=== PATIENT | female | born 1985 | race African-American/Black ===

== ENCOUNTER → 2018-05-20 | Outpatient (CLI) | payer MEDICAID ==
[2018-05-20 10:54] VITALS: BP 110/70
[2018-05-20 12:35] LABS: ABSOLUTE BASOPHILS # (AUTO) 0.1 10^3/uL (0.0-0.2); ABSOLUTE EOSINOPHILS # (AUTO) 0.2 10^3/uL (0.0-0.6); ABSOLUTE LYMPHOCYTES (AUTO) 3.6 10^3/uL (0.5-4.7); ABSOLUTE NEUT (AUTO) 8.4 10^3/uL (1.7-8.2); BASOPHILS % (AUTO) 0.7 % (0-2); EOSINOPHILS % (AUTO) 1.5 % (0-6); HEMATOCRIT 37.8 % (36.0-47.0); HEMOGLOBIN 12.7 g/dL (12.0-15.5); MEAN CORPUSCULAR HEMOGLOBIN 30.9 pg (27.0-33.4); MEAN CORPUSCULAR HGB CONC 33.6 g/dL (32.0-36.0); MEAN CORPUSCULAR VOLUME 92 fl (80-97); MONOCYTES % (AUTO) 7.3 % (3-13); PLATELET COUNT 309 10^3/uL (150-450); RED BLOOD COUNT 4.12 10^6/uL (3.72-5.28); SEGMENTED NEUTROPHILS % (AUTO) 63.5 % (42-78); TOTAL CELLS COUNTED % (AUTO) 100 %; WHITE BLOOD COUNT 13.2 10^3/uL (4.0-10.5)
[2018-05-20 12:54] LABS: URINE AMPHETAMINES SCREEN NEGATIVE; URINE BARBITURATES SCREEN NEGATIVE; URINE BENZODIAZEPINES SCREEN NEGATIVE; URINE COCAINE SCREEN NEGATIVE; URINE METHADONE SCREEN NEGATIVE; URINE PHENCYCLIDINE SCREEN NEGATIVE
[2018-05-20 13:11] LABS: APPEARANCE,URINE CLEAR; BILIRUBIN,URINE NEGATIVE (NEGATIVE); COLOR,URINE YELLOW; GLUCOSE, URINE NEGATIVE (NEGATIVE); KETONES,URINE NEGATIVE (NEGATIVE); LEUKOCYTE ESTERASE,URINE TRACE (NEGATIVE); NITRITE,URINE NEGATIVE (NEGATIVE); PROTEIN,URINE NEGATIVE (NEGATIVE); URINE SPECIFIC GRAVITY 1.026; UROBILINOGEN,URINE NEGATIVE mg/dL (<2.0)
[2018-05-20 13:24] LABS: URINE MARIJUANA (THC) SCREEN UNCONFIRMED POSITIVE
--- NOTE | 2018-05-20 23:03 | EKG REPORT ---
SEVERITY:- NORMAL ECG - SINUS RHYTHM : Confirmed by: Pat Hsu 20-May-2018 23:03:13
== END ==
LOC: OD 11:40 → EDSTATUS 05-23 11:30
PROVIDERS: ATTEND Obstetrics & Gynecology
DX: Z01.810 Encounter for preprocedural cardiovascular examination (principal); Z01.812 Encounter for preprocedural laboratory examination; Z01.818 Encounter for other preprocedural examination
CPT/HCPCS: 36415; 80307; 81001; 85025; 93005; 93010

== ENCOUNTER 2018-06-05 13:00 | Inpatient (IN) | payer MEDICAID ==
[2018-06-05] MEDS ORDERED: RINGERS SOLUTION,LACTATED 1,000 ML IV PRN (13:29)
[2018-06-05] MEDS ORDERED: RINGERS SOLUTION,LACTATED 1,000 ML IV ONE (13:29)
[2018-06-05 14:01] LABS: ABSOLUTE EOSINOPHILS # (AUTO) 0.1 10^3/uL (0.0-0.6); ABSOLUTE LYMPHOCYTES (AUTO) 2.4 10^3/uL (0.5-4.7); ABSOLUTE MONOCYTES (AUTO) 0.7 10^3/uL (0.1-1.4); ABSOLUTE NEUT (AUTO) 6.3 10^3/uL (1.7-8.2); BASOPHILS % (AUTO) 0.5 % (0-2); EOSINOPHILS % (AUTO) 1.2 % (0-6); HEMATOCRIT 35.7 % (36.0-47.0); HEMOGLOBIN 12.2 g/dL (12.0-15.5); LYMPHOCYTES % (AUTO) 25.3 % (13-45); MEAN CORPUSCULAR HEMOGLOBIN 31.4 pg (27.0-33.4); MEAN CORPUSCULAR HGB CONC 34.2 g/dL (32.0-36.0); MEAN CORPUSCULAR VOLUME 92 fl (80-97); MONOCYTES % (AUTO) 6.9 % (3-13); PLATELET COUNT 315 10^3/uL (150-450); RED CELL DISTRIBUTION WIDTH 13.9 % (11.5-14.0); SEGMENTED NEUTROPHILS % (AUTO) 66.1 % (42-78); TOTAL CELLS COUNTED % (AUTO) 100 %; WHITE BLOOD COUNT 9.6 10^3/uL (4.0-10.5)
--- NOTE | 2018-06-05 14:39 | Admission Physical ---
Datetime Report Generated by CPN: 06/05/2018 14:39 CURRENT ADMISSION Chief Complaint: Other Indication for Induction: Demise Admit Impression : No Active Labor Admit Plan: Initiate Labor Induction Protocol ALLERGIES Medication Allergies: No Medication Allergies: No Known Allergies (05/20/2018) Latex: No Latex Allergies OBSTETRICAL HISTORY EDC: 10/21/2018 00:00 : 2 Para: 0 Gestational Diabetes: No Rh Sensitization: No Incompetent Cervix: No ARIADNE: No Infertility: No ART Treatment: No Uterine Anomaly: No IUGR: No Hx Previous C/S: No Macrosomia: No Hx Loss/Stillborn: No PIH: No Hx : No Placenta Previa/Abruption: No Depression/PP Depression: No PTL/PROM: No Post Hemorrhage: No Current Procedures: Ultrasound Obstetrical History Comments: G1 - SAB G2 - IUFD @ 20 WEEKS, +AFP, ADNEXIAL MASS, CHTN SEE RECORDS Alcohol: No Marijuana : No Cocaine: No Other Illicit Drugs: No Cigarettes: Never Smoker. 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 Heart Disease: No Hosp/Surgery: No Autoimmune Disorder: No Anesthetic Complications: No Kidney Disease: No Abnormal Pap Smear: No Neuro/Epilepsy: No Psychiatric Disorders: No Other Medical Diseases: No Hepatitis/Liver Disease: No Significant Family History: No Varicosities/Phlebitis: No Trauma/Violence : No Thyroid Dysfunction: No Medical History Comments: PCOS, ADNEXIAL MASS INFECTIOUS HISTORY Gonorrhea: No Genital Herpes: No Chlamydia: No Tuberculosis: No Syphilis: No Hepatitis: No HIV/AIDS Exposure: No Rash or Viral Illness: No HPV: No PHYSICAL EXAM General: Normal HEENT: Deferred Neurologic: Normal Thyroid: Deferred Heart: Normal Lungs: Normal Breast: Deferred Back: Deferred Abdomen: Normal Genitourinary Exam: Normal Extremities: Normal DTRs: Deferred Pelvic Type: Adequate Physical Exam Comments: no heart tones at [facility] today on sonogram Vital Signs: Reviewed VAGINAL EXAM Dilatation: 0 Effacement: 0 Station: -1 FETUS A Admit Comment: CHTN PCOS Pt has Lt adnexal mass, surgery scheduled next week for removal MFM was consulted for +AFP G1: SAB early G2: current PLANS FOR LABOR AND DELIVERY Labor and Delivery: Plan Pain Management: Medications; Epidural INFORMED CONSENT Assignment: Toney Bess MD Signature: with User ID: Mary : with User ID: Mary
[2018-06-05 14:53] LABS: URINE AMPHETAMINES SCREEN NEGATIVE; URINE BARBITURATES SCREEN NEGATIVE; URINE BENZODIAZEPINES SCREEN NEGATIVE; URINE COCAINE SCREEN NEGATIVE; URINE METHADONE SCREEN NEGATIVE; URINE PHENCYCLIDINE SCREEN NEGATIVE
[2018-06-05 15:02] LABS: URINE MARIJUANA (THC) SCREEN UNCONFIRMED POSITIVE
[2018-06-05] MEDS ORDERED: MISOPROSTOL 0.1 MG TABLET ONE ×2 (15:02→21:10)
[2018-06-05] MEDS ORDERED: OXYCODONE-ACETAMINOPHEN 5-325 MG TABLET PO PRN (15:14)
[2018-06-05] MEDS ORDERED: ACETAMINOPHEN 325 MG TABLET PO PRN (15:14)
[2018-06-05] MEDS ORDERED: LOPERAMIDE HCL 2 MG CAPSULE PO PRN (15:14)
[2018-06-05] MEDS: MISOPROSTOL 0.1 MG TABLET PV SCH ×2 (19:03→21:24)
[2018-06-05] MEDS ORDERED: OXYCODONE-ACETAMINOPHEN 5-325 MG TABLET ONE (19:30)
[2018-06-05] MEDS ORDERED: NALBUPHINE HCL INJ 10 MG/1 ML AMPULE INJ ONE (21:08)
[2018-06-05] MEDS ORDERED: NALBUPHINE HCL INJ 10 MG/1 ML AMPULE ONE (21:10)
[2018-06-05] MEDS ORDERED: PROMETHAZINE HCL 25 MG SUPP.RECT PR PRN (22:47)
[2018-06-05] MEDS ORDERED: BENZOCAINE/MENTHOL AEROSOL SPRAY 56 ML TOP PRN (22:47)
[2018-06-05] MEDS ORDERED: PROMETHAZINE HCL INJ 25 MG/1 ML VIAL IV PRN (22:47)
[2018-06-05] MEDS ORDERED: ACETAMINOPHEN 650 MG SUPP.RECT PR PRN (22:47)
[2018-06-05] MEDS ORDERED: MAGNESIUM HYDROXIDE SUSP 30 ML UDCUP PO PRN (22:47)
[2018-06-05] MEDS ORDERED: ZOLPIDEM TARTRATE 5 MG TABLET PO PRN (22:47)
[2018-06-05] MEDS ORDERED: DIBUCAINE 1% OINTMENT 28 GM TP PRN (22:47)
[2018-06-05] MEDS ORDERED: NA PHOS,M-B/NA PHOS,DI-BA (ADULT) 133 ML ENEMA PR PRN (22:47)
[2018-06-05] MEDS ORDERED: OXYTOCIN/NORMAL SALINE 20 UNIT/1,000 ML RTUINJ IV PRN (22:47)
[2018-06-05] MEDS ORDERED: MEASLES,MUMPS&RUBELLA VACC/PF 0.5 ML VIAL SUBCUT PRN (22:47)
[2018-06-05] MEDS ORDERED: DIPHENHYDRAMINE HCL 25 MG CAPSULE PO PRN (22:47)
[2018-06-05] MEDS ORDERED: ACETAMINOPHEN WITH CODEINE #3 TABLET PO PRN (22:47)
[2018-06-05] MEDS ORDERED: DIPH/PERTUSS(ACELL)/TETANUS VAC/PF 0.5 ML SYR (>=10YO) IM PRN (22:47)
[2018-06-05] MEDS ORDERED: PROMETHAZINE HCL 25 MG TABLET PO PRN (22:47)
[2018-06-05] MEDS ORDERED: GLYCERIN/WITCH HAZEL LEAF 1 EACH MED..PAD TP PRN (22:47)
[2018-06-05] MEDS ORDERED: PSEUDOEPHEDRINE HCL 30 MG TABLET PO PRN (22:47)
[2018-06-06] MEDS ORDERED: IBUPROFEN 800 MG TABLET PO SCH (06:00)
[2018-06-06 06:29] LABS: HEMATOCRIT 34.1 % (36.0-47.0); HEMOGLOBIN 11.8 g/dL (12.0-15.5); MEAN CORPUSCULAR HEMOGLOBIN 31.7 pg (27.0-33.4); MEAN CORPUSCULAR HGB CONC 34.6 g/dL (32.0-36.0); MEAN CORPUSCULAR VOLUME 92 fl (80-97); PLATELET COUNT 246 10^3/uL (150-450); RED BLOOD COUNT 3.73 10^6/uL (3.72-5.28); RED CELL DISTRIBUTION WIDTH 13.7 % (11.5-14.0); WHITE BLOOD COUNT 11.6 10^3/uL (4.0-10.5)
[2018-06-06] MEDS ORDERED: SENNOSIDES/DOCUSATE 8.6-50 MG 1 EACH TABLET PO SCH (10:00)
[2018-06-06] MEDS ORDERED: PRENATAL VITAMIN W DHA CAPSULE PO SCH (10:00)
[2018-06-06] MEDS ORDERED: FERROUS SULFATE 325 MG TABLET PO SCH (10:00)
[2018-06-06] MEDS ORDERED: FAMOTIDINE 20 MG TABLET PO SCH (10:00)
[2018-06-06] MEDS ORDERED: DOCUSATE SODIUM 100 MG CAPSULE PO SCH (10:00)
--- NOTE | 2018-06-06 11:56 | RADIOLOGY REPORT (SQ) ---
EXAM DESCRIPTION: CT ABD/PELVIS WITH IV ORAL COMPLETED DATE/TIME: 06/06/2018 11:43 am REASON FOR STUDY: ovarian mass COMPARISON: Ultrasound from [facility] dated 02/20/2018 and 02/24/2016. TECHNIQUE: CT scan of the abdomen and pelvis performed using helical scanning technique with dynamic intravenous contrast injection. No oral contrast. Images reviewed with lung, soft tissue, and bone windows. Reconstructed coronal and sagittal MPR images reviewed. Delayed images for evaluation of the urinary system also acquired. All images stored on PACS. All CT scanners at this facility use dose modulation, iterative reconstruction, and/or weight based d osing when appropriate to reduce radiation dose to as low as reasonably achievable (ALARA). [facility]: Dose Right [facility]: CareDose [facility]: Dose Right [facility]: Teradose 4D [facility]: [employer] CONTRAST TYPE AND DOSE: contrast/concentration: Isovue 350.00 mg/ml; Total Contrast Delivered: 100.0 ml; Total Saline Delivered: 72.0 ml RENAL FUNCTION: None required. The patient is less than 50 years old. RADIATION DOSE: CT Rad equipment meets quality standard of care and radiation dose reduction techniq ues were employed. CTDIvol: 22.6 - 23.2 mGy. DLP: 2339 mGy-cm.. LIMITATIONS: None. FINDINGS: LOWER CHEST: No significant findings. No nodules or infiltrates. LIVER: Normal size. No masses. No dilated ducts. SPLEEN: Normal size. No focal lesions. PANCREAS: No masses. No significant calcifications. No adjacent inflammation or peripancreatic fluid collections. Pancreatic duct not dilated. GALLBLADDER: No identified stones by CT criteria. No inflammatory changes to suggest cholecystitis. ADRENAL GLANDS: No significant masses or asymmetry. RIGHT KIDNEY AND URETER: No solid masses. 1-2 mm lower pole calyceal calculus. No hydronephrosis or hydroureter. LEFT KIDNEY AND URETER: No solid masses. Tiny upper pole calyceal calculus. Duplicated collecting system. No hydronephrosis or hydroureter. AORTA AND VESSELS: No aneurysm. No dissection. Renal arteries, SMA, celiac without stenosis. RETROPERITONEUM: No retroperitoneal adenopathy, hemorrhage or masses. BOWEL AND PERITONEAL CAVITY: No masses or inflammatory changes. No free fluid or peritoneal masses. APPENDIX: Normal. PELVIS: 4.5 x 5.5 cm left ovarian mass. Heterogenous density but predominantly fatty density with [place] units approximately -90. No free fluid. Normal bladder. ABDOMINAL WALL: No masses. No hernias. BONES: No significant or acute findings. OTHER: No other significant finding. IMPRESSION: 1. LEFT OVARIAN MASS, PREDOMINATELY FATTY DENSITY, CONSISTENT WITH A DERMOID. 2. SMALL NONOBSTRUCTING CALYCEAL CALCULI IN BOTH KIDNEYS. 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 3. NO OTHER SIGNIFICANT OR ACUTE FINDING IN THE ABDOMEN OR PELVIS ON CT SCAN WITH IV CONTRAST. TECHNICAL DOCUMENTATION: JOB ID: [id number] Quality ID # [id number]: Final reports with documentation of one or more dose reduction techniques (e.g., Au tomated exposure control, adjustment of the mA and/or kV according to patient size, use of iterative reconstruction technique) 2010 [employer]- All Rights Reserved Reading location - IP/workstation name: [facility]
--- NOTE | 2018-06-06 16:42 | L&D Progress Notes ---
PROGRESS NOTES Datetime Report Generated by CPN: 06/06/2018 16:41 PROGRESS NOTE Comment: up to evaluate the patient and evaluate her for discharge. However, I was informed that she was already gone. I called the patient on her home number. No answer. RN at our office was able to reach her and patient called me so that I could give her instructions for next week with Dr. Zavala for her surgery. She reports that the staff discharged her. She was not discharged by myself or ARSLAN garcia as neither of us had been in to discuss her care with her. VAGINAL EXAM Dilatation: 0 Effacement: 0 Station: -1 SIGNATURE SIGNATURE: [id number] SIGNATURE: [id number] Signature: with User ID: [email or web address]
--- NOTE | 2018-06-06 19:43 | PDOC DISCHARGE SUMMARY ---
Final Diagnosis Discharge Date: 06/06/18 - Final Diagnosis (1) Intrauterine at 20 weeks or more of gestation Is this a current diagnosis for this admission?: Yes (2) Ovarian mass, left Is this a current diagnosis for this admission?: Yes Discharge Data - Discharge Medication Home Medications: Aspirin [Aspirin 81 mg Chewable Tablet] 1 tab PO BID 05/20/18 Vit,Calc76/Iron/Folic [Prenatabs Rx Tablet] 1 tab PO DAILY 05/20/18 Gestational Age: 20.2 Reason(s) for Admission: Induction of Labor, Demise Admission Note: 20+2ega seen in office on 06/05 for routine appt and to follow up with her regarding her appt with [facility] regarding her left ovarian mass. She was unfortunately noted to have a demise Procedures: Management of Medical Complications Intrapartum Procedure(s): Spontaneous Vaginal Delivery Intrapartum Procedure Note: Admitted at 20+ega and cytotec given for Induction due to demise. Labs ordered as well due to ovarian mass with concern for malignant pathology. pt with known plan to have surgical evaluation at [facility] AT [facility] by Dr. Houston on Sunday next week. See delivery note. Complication(s) Note: Patient monitored on labor and delivery for complications and to obtain CT scan of chest/abd/pelvis that Dr. Zavala wanted to help guide her care. She was doing well. I was going in to see the patient and the patient had apparently already been discharge by nursing staff - despite my instructions previously that I was not yet ready to discharge her. Actual discharge order placed not because provider discharge her but to complete documentation after staff discharge the patient. Therefore when staff discharged her she had not been seen by a provider and had not been given any discharge medications. With the assistance of my office staff was able to locate the patient who returned my call on labor and delivery so that I could pass on Dr. Zavala instructions and check on her. she stated that she was havng minimal bleeding and her pain was under control. I offered her pain medication and asked if I could be of any assistance to her. She stated she would call if she needed anything and will come in to our office on sunday to orange picker stuff for Dr. Zavala. - Diagnosis Test Laboratory: Temp Pulse Resp BP Pulse Ox 98.5 F 64 18 100 06/06/18 12:47 06/06/18 12:47 06/06/18 12:47 06/06/18 12:47 06/05/18 06/05/18 06/06/18 13:24 14:00 06:05 RBC 3.90 3.73 Hgb 12.2 11.8 L Hct 35.7 L 34.1 L Urine Opiates Screen NEGATIVE - Discharge information/Instructions Discharge Activity: Activity As Tolerated, Balance Activity w/Rest, Pelvic Rest Discharge Diet: As Tolerated Disposition: HOME, SELF-CARE Follow up with: [facility] in: 1
--- NOTE | 2018-06-17 18:12 | Delivery Summary ---
Del Sum A-C Datetime Report Generated by CPN: 06/17/2018 18:11 DELIVERY PERSONNEL DELIVERY PERSONNEL: [id number] Delivery Doctor:: Toney Bess, MD Labor and Delivery Nurse:: Elaine Hare, supervisor boarding Nurse:: Karime Prieto RN Additional Personnel: : Ivanna Valdovinos, RN MATERNAL INFORMATION Delivery Anesthesia: None Maternal Complications: None LABOR SUMMARY EDC: 10/21/2018 00:00 No. Babies in Womb: 1 Attempted: No Labor Anesthesia: IV Sedation LABOR INFORMATION Reason for Induction: Demise Onset of Labor: 06/05/2018 19:30 Complete Dilatation: 06/05/2018 21:31 Cervical Ripening Agents: Cytotec @ Oxytocin: N/A Group B Beta Strep: unknown Steroids Given: None Reason Steroids Not Administered: Not Applicable STAGES OF LABOR Stage 1 hr: 2 Stage 1 min: 1 Stage 2 hr: 0 Stage 2 min: 54 Stage 3 hr: 0 Stage 3 min: 15 Total Time in Labor hr: 3 Total Time in Labor min: 10 VAGINAL DELIVERY Episiotomy: None Laceration #1: None Laceration Extension #1: N/A Laceration Repair: Not Applicable Sponge Count Correct: N/A Sharps Count Correct: N/A CSECTION DELIVERY Primary Indication: N/A Secondary Indication: N/A CSection Incidence: N/A Labor: N/A Elective: N/A CSection Incision: N/A BABY A INFORMATION Infant Delivery Date/Time: 06/05/2018 22:25 Method of Delivery: Vaginal Method of Delivery: Vaginal Born in Route : No : N/A Forceps: N/A Vacuum Extraction: N/A Shoulder Dystocia : No PRESENTATION/POSITION BABY A Presentation: Breech Breech Presentation: Double Footling PLACENTA INFORMATION BABY A Placenta Delivery Time : 06/05/2018 22:40 Placenta Method of Delivery: Spontaneous Placenta Method of Delivery: Spontaneous Placenta Method of Delivery: Manual Removal Placenta Status: Delivered SCORES BABY A Heart Rate 1 min: Absent Resp Effort 1 min: Absent Reflex Irritability 1 min: No Response Muscle Tone 1 min: Flaccid Color 1 min: Blue/Pale SCORE 1 MIN: 0 Heart Rate 5 min: Absent Resp Effort 5 min: Absent Reflex Irritability 5 min: No Response Muscle Tone 5 min: Flaccid Color 5 min: Blue/Pale SCORE 5 MIN: 0 INFANT INFORMATION BABY A Gestational Age at Delivery: 20.2 Gestational Status: - <34 Weeks Outcome : Stillborn Infant Sex: Female Sex: Female WEIGHT/LENGTH BABY A Birthweight (gm): 133 Weight (lb): 0 Weight (oz): 5 Infant Length (in): 7.50 Infant Length (cm): 19.05 CORD INFORMATION BABY A No. Cord Vessels: 3 Nuchal Cord : N/A Cord Blood Taken: No-Annotate Suction: None ASSESSMENT BABY A Infant Complications: Other Complications- Other: IUFD Resident Caregiver/ALS Called : No Infant Care By: M. Conner RN Transferred To: Remains with Mother BABY B INFORMATION : N/A SIGNATURES Signature: with User ID: [email or web address] : I was personally available for consultation and serving as supervising physician for the MLP.
== END 2018-06-06 13:30 | disposition home or self-care (01) | DRG 775 ==
LOC: LR 13:00
PROVIDERS: ADMIT Obstetrics & Gynecology Gynecology; ATTEND Obstetrics & Gynecology Gynecology
PROC: 10E0XZZ Delivery of Products of Conception, External Approach (ICD-10-PCS; principal; 2018-06-05)
PROC: 3E033VJ Introduction of Other Hormone into Peripheral Vein, Percutaneous Approach (ICD-10-PCS; 2018-06-05)
PROC: 4A1HXCZ Monitoring of Products of Conception, Cardiac Rate, External Approach (ICD-10-PCS; 2018-06-05)
DX: O36.4XX0 Maternal care for intrauterine death, not applicable or unspecified (principal); D27.1 Benign neoplasm of left ovary; O32.8XX0 Maternal care for other malpresentation of fetus, not applicable or unspecified; Z3A.20 20 weeks gestation of pregnancy; Z37.1 Single stillbirth
CPT/HCPCS: 36415; 74177; 80307; 83615; 84702; 85025; 85027; 86592; 86850; 86900; 86901; 88305; J2300; J3490

== ENCOUNTER 2019-09-22 19:00 | Observation (INO) | payer MEDICAID ==
[2019-09-22 19:33] LABS: APPEARANCE,URINE SLIGHTLY-CLOUDY; BILIRUBIN,URINE NEGATIVE (NEGATIVE); COLOR,URINE YELLOW; GLUCOSE, URINE NEGATIVE (NEGATIVE); KETONES,URINE 80 mg/dL (NEGATIVE); LEUKOCYTE ESTERASE,URINE LARGE (NEGATIVE); NITRITE,URINE NEGATIVE (NEGATIVE); PROTEIN,URINE NEGATIVE (NEGATIVE); URINE SPECIFIC GRAVITY 1.013; UROBILINOGEN,URINE NEGATIVE mg/dL (<2.0)
[2019-09-22 19:50] LABS: URINE AMPHETAMINES SCREEN NEGATIVE; URINE BARBITURATES SCREEN NEGATIVE; URINE BENZODIAZEPINES SCREEN NEGATIVE; URINE COCAINE SCREEN NEGATIVE; URINE METHADONE SCREEN NEGATIVE; URINE PHENCYCLIDINE SCREEN NEGATIVE
[2019-09-22 19:56] LABS: URINE MARIJUANA (THC) SCREEN UNCONFIRMED POSITIVE
[2019-09-22] MEDS ORDERED: BETAMET ACET/BETAMET NA INJ 6 MG/1 ML IM PRN (20:33)
[2019-09-22] MEDS ORDERED: RINGERS SOLUTION,LACTATED 1,000 ML IV PRN (20:34)
[2019-09-22] MEDS ORDERED: BETAMET ACET/BETAMET NA INJ 6 MG/1 ML ONE ×2 (20:39→20:46)
[2019-09-22] MEDS ORDERED: TERBUTALINE SULFATE INJ/PF 1 MG/1 ML SDV ONE (21:14)
[2019-09-22] MEDS ORDERED: TERBUTALINE SULFATE INJ/PF 1 MG/1 ML SDV SUBCUT ONE (21:14)
--- NOTE | 2019-09-22 21:27 | Admission Physical ---
Datetime Report Generated by CPN: 09/22/2019 21:26 CURRENT ADMISSION Chief Complaint: Uterine Contractions Indication for Induction: Not Applicable Admit Impression : , Intrauterine ; Observation/Evaluation Admit Plan: Observation/Evaluation Admit Plan- Other: palpable contractions, concerns for Delivery due to cervical dilatation. ALLERGIES Medication Allergies: No Medication Allergies: No Known Allergies (05/20/2018) Latex: No Latex Allergies OBSTETRICAL HISTORY EDC: 10/31/2019 00:00 : 3 Para: 0 Term: 0 : 0 SAB: 0 IAB: 0 Ectopic: 0 Livin Cesareans: 0 VBACs: 0 Multiple Births: 0 Gestational Diabetes: No Rh Sensitization: No Incompetent Cervix: No ARIADNE: No Infertility: No ART Treatment: No Uterine Anomaly: No IUGR: No Hx Previous C/S: No Macrosomia: No Hx Loss/Stillborn: No PIH: No Hx : No Placenta Previa/Abruption: No Depression/PP Depression: No PTL/PROM: No Post Hemorrhage: No Obstetrical History Comments: 2015 SAB with D_C 2017 IUFD at 16 weeks G3- current SEE RECORDS Alcohol: No Marijuana : Yes Cocaine: No Other Illicit Drugs: No Cigarettes: Never Smoker. 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 Heart Disease: No Hosp/Surgery: No Autoimmune Disorder: No Anesthetic Complications: No Kidney Disease: No Abnormal Pap Smear: No Neuro/Epilepsy: No Psychiatric Disorders: No Other Medical Diseases: No Hepatitis/Liver Disease: No Significant Family History: No Varicosities/Phlebitis: No Trauma/Violence : No Thyroid Dysfunction: No Medical History Comments: ovarian mass removed 2018- benign dermoid, CHTN INFECTIOUS HISTORY Gonorrhea: No Genital Herpes: No Chlamydia: No Tuberculosis: No Syphilis: No Hepatitis: No HIV/AIDS Exposure: No Rash or Viral Illness: No HPV: No PHYSICAL EXAM General: Normal HEENT: Normal Neurologic: Normal Thyroid: Normal Heart: Normal Lungs: Normal Breast: Normal Back: Normal Abdomen: Normal Genitourinary Exam: Normal Extremities: Normal DTRs: Normal Pelvic Type: Adequate Vital Signs: Reviewed VAGINAL EXAM Dilatation: 2 Effacement: 100 Station: -1 MEMBRANES Pooling: Negative Membranes: Intact FETUS A EGA: 34.3 Monitoring: External US FHR- Baseline: 140 Variability: Moderate 6-25bpm Accelerations: 15X15 Decelerations: None FHR Category: Category I Estimated Weight (gm): 2500 Presentation: Vertex Admit Comment: will monitor for advancing labor. Terbutiline to attempt tocolysis. Patient given a single dose of celestone for FLM and NEC prevention. d/w pt and family member regarding need for observation and possibility of early delivery with need for infant support in NICU if delivery does occur. PLANS FOR LABOR AND DELIVERY Benefit of Breast Feed Discussed: Yes INFORMED CONSENT Signature: with User ID: [email or web address]
[2019-09-22] MEDS ORDERED: RINGERS SOLUTION,LACTATED 1,000 ML IV ONE (21:38)
[2019-09-22 22:22] LABS: HEMATOCRIT 36.8 % (36.0-47.0); HEMOGLOBIN 12.6 g/dL (12.0-15.5); MEAN CORPUSCULAR HEMOGLOBIN 30.4 pg (27.0-33.4); MEAN CORPUSCULAR HGB CONC 34.2 g/dL (32.0-36.0); MEAN CORPUSCULAR VOLUME 89 fl (80-97); PLATELET COUNT 297 10^3/uL (150-450); RED BLOOD COUNT 4.14 10^6/uL (3.72-5.28); RED CELL DISTRIBUTION WIDTH 14.2 % (11.5-14.0); WHITE BLOOD COUNT 16.6 10^3/uL (4.0-10.5)
[2019-09-23] MEDS ORDERED: BETAMET ACET/BETAMET NA INJ 6 MG/1 ML ONE ×2 (00:14→20:50)
[2019-09-23] MEDS ORDERED: NIFEDIPINE 10 MG CAPSULE PO PRN (08:20)
[2019-09-23] MEDS ORDERED: NIFEDIPINE 10 MG CAPSULE ONE (08:27)
[2019-09-23] MEDS ORDERED: BETAMET ACET/BETAMET NA INJ 6 MG/1 ML IM PRN (21:00)
--- NOTE | 2019-09-23 21:26 | Non Stress Test Report ---
Non Stress Test Datetime Report Generated by CPN: 09/23/2019 21:25 DEMOGRAPHIC EGA NST: 34.4 INDICATION Indication for Study (NST) Other: Gestional age greater than 32 weeks MONITORING Monitor Explained: Monitor Explained; Test Explained; Patient Verbalized Understanding Time on Monitor: 09/23/2019 19:55 Time off Monitor: 09/23/2019 20:38 NST Duration: 43 NST INTERVENTIONS NST Interventions: PO Hydration; Meal Given; Reposition Patient Physician Notified NST: Dr. Coronel BABY A: [id number] BABY A Movement : Present Contraction Frequency : irritability FHR Baseline : 125 Accelerations : 15X15 Decelerations : None Variability : Moderate 6-25bpm NST Review: Meets Criteria for Reactive NST NST Review and Verified By : Diego Keeneavancchula RN NST Results: Reactive NST REPORT Report Trigger: Send Report
== END 2019-09-23 21:00 | disposition home or self-care (01) ==
LOC: LC 19:00 → LR 21:20 → UNDODISOB 09-23 00:33
PROVIDERS: ADMIT Obstetrics & Gynecology; ATTEND Obstetrics & Gynecology
DX: O47.03 False labor before 37 completed weeks of gestation, third trimester (principal); Z3A.34 34 weeks gestation of pregnancy; Z87.59 Personal history of other complications of pregnancy, childbirth and the puerperium
CPT/HCPCS: 96372 ×2; 86900; 86901; 36415; 86850; 85027; 87077; 86592; 81001; 87081; 80307; 59025; G0378 ×2; G0480 ×2; J3490; J0702 ×2; J3105; 80349

== ENCOUNTER 2019-09-25 08:08 | Inpatient (IN) | payer MEDICAID ==
[2019-09-25] MEDS ORDERED: PENICILLIN G POTASSIUM 5,000,000 UNIT in DEXTROSE 5%-WATER 100 ML IV ONE (10:36)
[2019-09-25 10:38] LABS: URINE AMPHETAMINES SCREEN NEGATIVE; URINE BARBITURATES SCREEN NEGATIVE; URINE BENZODIAZEPINES SCREEN NEGATIVE; URINE COCAINE SCREEN NEGATIVE; URINE METHADONE SCREEN NEGATIVE; URINE PHENCYCLIDINE SCREEN NEGATIVE
[2019-09-25] MEDS ORDERED: MORPHINE SULFATE 10 MG/ML INJ ONE (10:39)
[2019-09-25] MEDS ORDERED: MORPHINE SULFATE 10 MG/ML INJ IV ONE (10:39)
[2019-09-25] MEDS ORDERED: PENICILLIN G-K 5 MILLION UNIT VIAL ONE ×2 (10:40→15:09)
[2019-09-25 10:43] LABS: URINE MARIJUANA (THC) SCREEN UNCONFIRMED POSITIVE
[2019-09-25 10:45] LABS: ABSOLUTE BASOPHILS # (AUTO) 0.1 10^3/uL (0.0-0.2); ABSOLUTE LYMPHOCYTES (AUTO) 3.4 10^3/uL (0.5-4.7); ABSOLUTE MONOCYTES (AUTO) 0.8 10^3/uL (0.1-1.4); ABSOLUTE NEUT (AUTO) 9.8 10^3/uL (1.7-8.2); BASOPHILS % (AUTO) 0.4 % (0-2); EOSINOPHILS % (AUTO) 0.3 % (0-6); HEMATOCRIT 35.4 % (36.0-47.0); HEMOGLOBIN 12.1 g/dL (12.0-15.5); LYMPHOCYTES % (AUTO) 24.1 % (13-45); MEAN CORPUSCULAR HEMOGLOBIN 30.6 pg (27.0-33.4); MEAN CORPUSCULAR HGB CONC 34.3 g/dL (32.0-36.0); MEAN CORPUSCULAR VOLUME 89 fl (80-97); MONOCYTES % (AUTO) 5.8 % (3-13); PLATELET COUNT 302 10^3/uL (150-450); RED BLOOD COUNT 3.97 10^6/uL (3.72-5.28); RED CELL DISTRIBUTION WIDTH 14.3 % (11.5-14.0); SEGMENTED NEUTROPHILS % (AUTO) 69.4 % (42-78); TOTAL CELLS COUNTED % (AUTO) 100 %; WHITE BLOOD COUNT 14.1 10^3/uL (4.0-10.5)
[2019-09-25 10:53] LABS: UR PRO/CREAT RATIO RESULT 0.2 mg/mg (0.0-0.2); URINE CREATININE 73.1 mg/dL (16-327); URINE PROTEIN 17.2 mg/dL (<12)
[2019-09-25 11:11] LABS: ALBUMIN 3.3 g/dL (3.5-5.0); ALKALINE PHOSPHATASE 112 U/L (38-126); ANION GAP 11 (5-19); ASPARTATE AMINO TRANSFERASE 53 U/L (14-36); BILIRUBIN,DIRECT 0.3 mg/dL (0.0-0.4); BILIRUBIN,TOTAL 0.3 mg/dL (0.2-1.3); BLOOD UREA NITROGEN 5 mg/dL (7-20); CARBON DIOXIDE 21 mmol/L (22-30); CHLORIDE 106 mmol/L (98-107); GLUCOSE 102 mg/dL (75-110); POTASSIUM 3.4 mmol/L (3.6-5.0); TOTAL PROTEIN 6.6 g/dL (6.3-8.2); URIC ACID 4.8 mg/dL (2.5-6.2)
[2019-09-25] MEDS ORDERED: PENICILLIN G POTASSIUM 2,500,000 UNIT in DEXTROSE 5%-WATER 50 ML IV SCH (14:37)
--- NOTE | 2019-09-25 14:54 | Admission Physical ---
Datetime Report Generated by CPN: 09/25/2019 14:53 CURRENT ADMISSION Chief Complaint: Uterine Contractions Indication for Induction: Not Applicable Admit Impression : , Intrauterine Admit Plan: Initiate Labor Protocol; Observation/Evaluation Admit Plan- Other: palpable contractions, concerns for Delivery due to cervical dilatation. ALLERGIES Medication Allergies: No Medication Allergies: No Known Allergies (09/25/2019) Latex: No Latex Allergies OBSTETRICAL HISTORY EDC: 10/31/2019 00:00 : 3 Para: 0 Term: 0 : 0 SAB: 0 IAB: 0 Ectopic: 0 Livin Cesareans: 0 VBACs: 0 Multiple Births: 0 Gestational Diabetes: No Rh Sensitization: No Incompetent Cervix: No ARIADNE: No Infertility: No ART Treatment: No Uterine Anomaly: No IUGR: No Hx Previous C/S: No Macrosomia: No Hx Loss/Stillborn: No PIH: No Hx : No Placenta Previa/Abruption: No Depression/PP Depression: No PTL/PROM: No Post Hemorrhage: No Current Procedures: Ultrasound; NST Obstetrical History Comments: - 2015 SAB with D_C G2- 2017 IUFD at 16 weeks G3- current SEE RECORDS Alcohol: No Marijuana : Yes Cocaine: No Other Illicit Drugs: No Cigarettes: Never Smoker. [id number] MEDICAL HISTORY Diabetes: No Blood Transfusion: No Pulmonary Disease (Asthma, TB): No Breast Disease: No Hypertension: Yes Loss Claim Clerk Surgery: Yes Heart Disease: No Hosp/Surgery: No Autoimmune Disorder: No Anesthetic Complications: No Kidney Disease: No Abnormal Pap Smear: No Neuro/Epilepsy: No Psychiatric Disorders: No Other Medical Diseases: No Hepatitis/Liver Disease: No Significant Family History: No Varicosities/Phlebitis: No Trauma/Violence : No Thyroid Dysfunction: No Medical History Comments: ovarian mass removed 2018- benign dermoid, CHTN INFECTIOUS HISTORY Gonorrhea: No Genital Herpes: No Chlamydia: No Tuberculosis: No Syphilis: No Hepatitis: No HIV/AIDS Exposure: No Rash or Viral Illness: No HPV: No PHYSICAL EXAM General: Normal HEENT: Normal Neurologic: Normal Thyroid: Normal Heart: Normal Lungs: Normal Breast: Deferred Back: Normal Abdomen: Normal Genitourinary Exam: Normal Extremities: Normal DTRs: Abnormal Pelvic Type: Adequate Vital Signs: Reviewed Details Vital Signs: mild range elevations in BP VAGINAL EXAM Dilatation: 3 Effacement: 100 Station: -1 Contraction Comments: Q 5-6 mins MEMBRANES Pooling: Negative Membranes: Bulging FETUS A EGA: 34.6 Monitoring: External US FHR- Baseline: 120 Variability: Moderate 6-25bpm Accelerations: 15X15 Decelerations: None FHR Category: Category I Estimated Weight (gm): 2500 Presentation: Vertex Admit Comment: with hx of ovarian mass (removed) and 16-17w loss with G2. in complaining of regular painful contractions. Pre-e workup normal except pr/cr=0.2 and mild elevation in AST. asymptomatic for pre-e. discussed with Dr Swann. GBS culture obtained. P:will observe for contractions and 24h urine collection. PLANS FOR LABOR AND DELIVERY Labor and Delivery: None Pain Management: Epidural Feeding Preference: Formula Benefit of Breast Feed Discussed: Yes Circumcision: Yes INFORMED CONSENT Assignment: Debra Swann MD Signature: with User ID: [email or web address] : with User ID: [email or web address]
[2019-09-25 16:08] LABS: BACTERIA (WET MOUNT) 3+ BACTERIA SEEN; RBCS (WET MOUNT) RARE RBCS SEEN; T.VAGINALIS (WET MOUNT) TRICHOMONAS SEEN; WBCS (WET MOUNT) 2+ WBCS SEEN; YEAST (WET MOUNT) NO YEAST SEEN
[2019-09-25] MEDS ORDERED: OXYCODONE-ACETAMINOPHEN 5-325 MG TABLET ONE (16:17)
[2019-09-25] MEDS ORDERED: OXYCODONE-ACETAMINOPHEN 5-325 MG TABLET PO ONE (16:23)
--- NOTE | 2019-09-25 16:24 | PDOC DISCHARGE SUMMARY ---
Impression - Admit/DC Date/PCP Admission Date/Primary Care Provider: 09/25/19 13:46 JOMAR FLETCHER MD Discharge Date: 09/25/19 - Discharge Diagnosis (1) Threatened premature labor Is this a current diagnosis for this admission?: Yes - Assessment Summary: The pt is coming in with chronic htn and contractions. Her cervix has not changed and she would like to go home. We will treat her htn at home as well. She will followup next week. She will return if her water breaks or she goes into labor. - Additional Information Resuscitation Status: Full Code Discharge Diet: Regular Discharge Activity: Balance Activity w/Rest, Pelvic Rest Referrals: JOMAR FLETCHER MD [Primary Care Provider] - Home Medications: Aspirin [Aspirin 81 mg Chewable Tablet] 1 tab PO BID 05/20/18 Vit,Calc76/Iron/Folic [Prenatabs Rx Tablet] 1 tab PO DAILY 05/20/18 History of Present Illiness History of Present Illness: JUDY MONTELONGO is a 34 year old female Physical Exam - Physical Exam Vital Signs: Intake & Output 09/24/19 09/25/19 09/26/19 06:59 06:59 06:59 Weight 111.5 kg Results Laboratory Results: WBC 14.1 10^3/uL (4.0-10.5) H 09/25/19 10:27 RBC 3.97 10^6/uL (3.72-5.28) 09/25/19 10:27 Hgb 12.1 g/dL (12.0-15.5) 09/25/19 10:27 Hct 35.4 % (36.0-47.0) L 09/25/19 10:27 MCV 89 fl (80-97) 09/25/19 10:27 MCH 30.6 pg (27.0-33.4) 09/25/19 10:27 MCHC 34.3 g/dL (32.0-36.0) 09/25/19 10:27 RDW 14.3 % (11.5-14.0) H 09/25/19 10:27 Plt Count 302 10^3/uL (150-450) 09/25/19 10:27 Lymph % (Auto) 24.1 % (13-45) 09/25/19 10:27 Pratt % (Auto) 5.8 % (3-13) 09/25/19 10:27 Eos % (Auto) 0.3 % (0-6) 09/25/19 10:27 Baso % (Auto) 0.4 % (0-2) 09/25/19 10:27 Absolute Neuts (auto) 9.8 10^3/uL (1.7-8.2) H 09/25/19 10:27 Absolute Lymphs (auto) 3.4 10^3/uL (0.5-4.7) 09/25/19 10:27 Absolute Monos (auto) 0.8 10^3/uL (0.1-1.4) 09/25/19 10:27 Absolute Eos (auto) 0.0 10^3/uL (0.0-0.6) 09/25/19 10:27 Absolute Basos (auto) 0.1 10^3/uL (0.0-0.2) 09/25/19 10:27 Seg Neutrophils % 69.4 % (42-78) 09/25/19 10:27 Sodium 138.3 mmol/L (137-145) 09/25/19 10:27 Potassium 3.4 mmol/L (3.6-5.0) L 09/25/19 10:27 Chloride 106 mmol/L (98-107) 09/25/19 10:27 Carbon Dioxide 21 mmol/L (22-30) L 09/25/19 10:27 Anion Gap 11 (5-19) 09/25/19 10:27 BUN 5 mg/dL (7-20) L 09/25/19 10:27 Creatinine 0.44 mg/dL (0.52-1.25) L 09/25/19 10:27 Est GFR ( Amer) > 60 (>60) 09/25/19 10:27 Est GFR (MDRD) Non-Af > 60 (>60) 09/25/19 10:27 Glucose 102 mg/dL (75-110) 09/25/19 10:27 Uric Acid 4.8 mg/dL (2.5-6.2) 09/25/19 10:27 Calcium 9.0 mg/dL (8.4-10.2) 09/25/19 10:27 Total Bilirubin 0.3 mg/dL (0.2-1.3) 09/25/19 10:27 Direct Bilirubin 0.3 mg/dL (0.0-0.4) 09/25/19 10:27 Neonat Total Bilirubin Not Reportable 09/25/19 10:27 Neonat Direct Bilirubin Not Reportable 09/25/19 10:27 Neonat Indirect Bili Not Reportable 09/25/19 10:27 AST 53 U/L (14-36) H 09/25/19 10:27 ALT 60 U/L (<35) 09/25/19 10:27 Alkaline Phosphatase 112 U/L (38-126) 09/25/19 10:27 Lactate Dehydrogenase 125 U/L (120-246) 09/25/19 10:27 Total Protein 6.6 g/dL (6.3-8.2) 09/25/19 10:27 Albumin 3.3 g/dL (3.5-5.0) L 09/25/19 10:27 Urine Creatinine 73.1 mg/dL (16-327) 09/25/19 08:25 Protein/Creatinin Ratio 0.2 mg/mg (0.0-0.2) 09/25/19 08:25 Urine Total Protein 17.2 mg/dL (<12) H 09/25/19 08:25 Bacteria (Wet Prep) 3+ BACTERIA SEEN 09/25/19 15:49 Trichomonas (Wet Prep) TRICHOMONAS SEEN 09/25/19 15:49 Vaginal WBC 2+ WBCS SEEN 09/25/19 15:49 Vaginal RBC RARE RBCS SEEN 09/25/19 15:49 Vaginal Yeast NO YEAST SEEN 09/25/19 15:49 Urine Opiates Screen NEGATIVE 09/25/19 08:25 Urine Methadone Screen NEGATIVE 09/25/19 08:25 Ur Barbiturates Screen NEGATIVE 09/25/19 08:25 Ur Phencyclidine Scrn NEGATIVE 09/25/19 08:25 Ur Amphetamines Screen NEGATIVE 09/25/19 08:25 U Benzodiazepines Scrn NEGATIVE 09/25/19 08:25 Urine Cocaine Screen NEGATIVE 09/25/19 08:25 U Marijuana (THC) Screen UNCONFIRMED POSITIVE 09/25/19 08:25 Blood Type O POSITIVE 09/25/19 10:27 Antibody Screen NEGATIVE 09/25/19 10:27 Stroke Is this a Stroke Patient?: No Acute Heart Failure - Is this a Heart Failure Patient?: No
[2019-09-25] MEDS ORDERED: NIFEDIPINE 30 MG TAB.ER.24 PO ONE ×2 (16:33→16:34)
[2019-09-25] MEDS ORDERED: METRONIDAZOLE 500 MG TABLET ONE (16:54)
[2019-09-25] MEDS ORDERED: METRONIDAZOLE 500 MG TABLET PO ONE ×2 (16:56→17:20)
[2019-09-25 17:29] LABS: CHLAM PCR NOT DETECTED (NOT DETECT)
== END 2019-09-25 17:27 | disposition home or self-care (01) | DRG 832 ==
LOC: LC 08:08 → LR 13:46 → OBSVTOIN 14:14
PROVIDERS: ADMIT Obstetrics & Gynecology; ATTEND Obstetrics & Gynecology
DX: O47.03 False labor before 37 completed weeks of gestation, third trimester (principal); O16.3 Unspecified maternal hypertension, third trimester; Z3A.34 34 weeks gestation of pregnancy
CPT/HCPCS: 36415; 59025; 80053; 80307; 80349; 82570; 83615; 84156; 84550; 85025; 86592; 86850; 86900; 86901; 87077; 87081; 87086; 87210; 87491; 87591; G0480; J2270; J2540

== ENCOUNTER 2019-09-26 12:26 | Outpatient (CLI) | payer MEDICAID ==
[2019-09-26] MEDS ORDERED: HYDROXYZINE PAMOATE 50 MG CAPSULE PO ONE (13:46)
[2019-09-26] MEDS ORDERED: HYDROXYZINE PAMOATE 50 MG CAPSULE ONE (14:00)
[2019-09-26 14:27] LABS: 24 HOUR URINE PROTEIN RESULT 367 mg/day (42-225); URINE PROTEIN 16.4 mg/dL (<12)
--- NOTE | 2019-09-26 15:18 | Non Stress Test Report ---
Non Stress Test Datetime Report Generated by CPN: 09/26/2019 15:18 DEMOGRAPHIC EGA NST: 35.0 MONITORING Monitor Explained: Monitor Explained; Test Explained; Patient Verbalized Understanding Time on Monitor: 09/26/2019 12:40 Time off Monitor: 09/26/2019 14:44 NST Duration: 124 NST INTERVENTIONS NST Interventions: PO Hydration; Reposition Patient Physician Notified NST: N. Branham, CNM BABY A: [id number] BABY A Movement : Present Contraction Frequency : rare FHR Baseline : 135 Accelerations : 15X15 Decelerations : None Variability : Moderate 6-25bpm NST Review: Meets Criteria for Reactive NST NST Review and Verified By : Pernell Fritz, RN NST Results: Reactive NST COMMENTS NST Comments: Provider on unit, reviewed strip NST REPORT Report Trigger: Send Report
== END 2019-09-26 15:06 | disposition home or self-care (01) ==
LOC: LC 12:26
PROVIDERS: ATTEND Obstetrics & Gynecology Gynecology
PROC: 4A1HXCZ Monitoring of Products of Conception, Cardiac Rate, External Approach (ICD-10-PCS; principal; 2019-09-26)
DX: O16.3 Unspecified maternal hypertension, third trimester (principal); Z3A.35 35 weeks gestation of pregnancy
CPT/HCPCS: 59025; 84156; J3490